=== PATIENT | female | born 1980 | race Hispanic/Latino ===

== ENCOUNTER 2016-10-02 04:34 | Emergency (ER) | payer SELFPAY ==
[2016-10-02] MEDS ORDERED: Nitroglycerin 0.4 MG TAB 1 EACH ONE (04:55)
[2016-10-02] MEDS ORDERED: Aspirin 325 MG TAB ONE (04:55)
[2016-10-02 05:10] LABS: INR-International Normal Ratio 0.9; PTT 28.8 SEC (22.9-36.1); Prothrombin Time 12.5 SEC (12.0-14.7)
[2016-10-02 05:14] LABS: ALT (SGPT) 28 U/L (0-55); AST (SGOT) 21 U/L (5-34); Albumin 3.9 g/dL (3.5-5.0); Alkaline Phosphatase 83 U/L (40-150); Anion Gap 19 mmol/L (10-20); BUN (Urea Nitrogen) 9 mg/dL (7.0-18.7); Bilirubin, Total 0.4 mg/dL (0.2-1.2); CK (CPK) 63 U/L (29-168); Calc. Creatinine Clearance 0 mL/min (70-130); Calcium 9.1 mg/dL (7.8-10.44); Carbon Dioxide 19 mmol/L (22-29); Chloride 104 mmol/L (98-107); Estimated GFR-MDRD 85; Globulin 3.5 g/dL (2.4-3.5); Glucose 115 mg/dL (70-105); Magnesium 1.9 mg/dL (1.6-2.6); Potassium 3.6 mmol/L (3.5-5.1); Protein, Total 7.4 g/dL (6.0-8.3); Sodium 138 mmol/L (136-145)
[2016-10-02 05:16] LABS: #Basophils 0.1 thou/uL (0.0-0.2); #Eosinphils 0.2 thou/uL (0.0-0.7); #Lymphocytes 4.9 thou/uL (1.20-3.40); #Monocytes 1.1 thou/uL (0.11-0.59); #Neutrophils 7.5 thou/uL (1.40-6.50); %Eosinophils 1.8 % (0.0-10.0); %Lymphocytes 35.1 % (21.0-51.0); %Monocytes 8.2 % (0.0-10.0); %Neutrophils 53.9 % (42.0-75.0); Hemoglobin 12.1 g/dL (12.0-16.0); Mean Corpuscular Hemoglobin 28.7 pg (27.0-31.0); Mean Corpuscular Volume 84.4 fl (81.0-99.0); Mean Platelet Volume 7.7 fL (7.4-10.4); Platelet Count 345 thou/uL (130-400); RBC Distribution Width 12.9 % (11.5-14.5); Red Blood Cell (RBC) Count 4.22 mill/uL (4.20-5.40); White Blood Cell (WBC) Count 13.9 thou/uL (4.8-10.8)
[2016-10-02 05:17] LABS: CKMB 1.1 ng/mL (0-6.6); Troponin I Less than 0.010 ng/mL (< 0.028)
[2016-10-02] MEDS ORDERED: Diazepam 5 MG TAB ONE (06:33)
[2016-10-02] MEDS ORDERED: Acetaminophen/Codeine 30-300mg Tablet ONE (06:33)
--- NOTE | 2016-10-02 07:54 | RAD ---
EXAM: ONE VIEW CHEST: HISTORY: Sharp left upper chest pain. Shortness of breath. COMPARISON: None. FINDINGS: Normal cardiac silhouette. Pulmonary vessels and hilum are normal. Lung volumes are diminished lik janet due to poor inspiratory effort. No mass. No consolidation. No pneumothorax or osseous abnorma lities. IMPRESSION: No acute cardiopulmonary process. POS: [facility]
== END 2016-10-02 06:47 | disposition home or self-care (01) ==
LOC: MADERS 04:34
DX: R07.9 Chest pain, unspecified (principal); E11.9 Type 2 diabetes mellitus without complications; I10 Essential (primary) hypertension; E78.00 Pure hypercholesterolemia, unspecified
CPT/HCPCS: 71010; 80053; 82550; 82553; 83735; 83880; 84484; 85025; 85610; 85730